=== PATIENT | female | born 1960 | race Caucasian/White ===

== ENCOUNTER 2017-06-14 14:29 | Inpatient (IN) | payer OTHER ==
[~2017-06-14] VITALS: Ht 157.5 cm; Wt 61.5 kg
--- NOTE | ~2017-06-14 | H ---
[facility] [place] [address] HISTORY AND PHYSICAL Name: SHUBHAM MCARTHUR Room #: 206-P ADM IN M.R.#: [id number] Admission: 06/14/17 Attend Phys: Pino Hsu MD Discharge: Date of : 64 Report #: [id number] THIS REPORT FOR: //name// CC: Felipe Moy DO [facility] physician/PCP Pino Hsu DATE OF SERVICE: 06/14/2017 History was primarily obtained from talking to the ER physician. No family available at the bedside. The patient has altered mental status and is awake, seems to be tracking me, but is nonverbal and does not follow any commands. HISTORY OF PRESENT ILLNESS: The patient is a 56-year-old female resident at [facility], has history of dementia, schizoaffective disorder and bipolar disorder who was brought into the Emergency Room because of increasing weakness. History is limited because the patient is being nonverbal, which is pretty much her baseline according to the documentation. They noted increasing weakness as she was not able to walk around. was also noted. The patient was hypotensive and tachycardic. On arrival to the Emergency Room, her initial blood pressure is 115/83, heart rate is 120 per minute. Workup in the Emergency Room included a CAT scan of the brain, which showed no acute abnormality. She did have electrolyte abnormality with an elevated sodium at 163 and also acute renal failure with a creatinine of 2.1. She was also noticed to have leukocytosis and UTI. PAST MEDICAL HISTORY: Significant for schizoaffective disorder, dementia and bipolar disorder. The patient is nonverbal at baseline. SOCIAL HISTORY: Unknown. FAMILY HISTORY: Unknown. REVIEW OF SYSTEMS: Unable to obtain from the patient. ALLERGIES: SHE IS ALLERGIC TO TETRACYCLINE, PENICILLIN, MORPHINE, BACTRIM. Please look at the nursing documentation for the reaction. HOME MEDICATIONS: Include Benadryl, trazodone 50 mg at bedtime, Tylenol, atorvastatin. The patient is also on Flonase, levothyroxine, loratadine, BuSpar, Haldol 1 mg p.o. b.i.d., Zyprexa as needed and zinc oxide. REVIEW OF SYSTEMS: Unable to obtain. PHYSICAL EXAMINATION: VITAL SIGNS: Reviewed. Blood pressure is 115/83, heart rate of 110 per minute, [facility] [address] [place] [address] HISTORY AND PHYSICAL Name: SHUBHAM MCARTHUR Room #: [facility] IN M.R.#: [id number] Admission: 06/14/17 Attend Phys: Pino Hsu MD Discharge: Date of : 64 Report #: [id number] afebrile. GENERAL: The patient is awake. She seems to be tracking me, but she is nonverbal. She does not follow any commands, seems to be keeping all her extremities pretty rigid. EYES: Pupils equal, reactive to light. THROAT: Difficult to appreciate because she does not want to open her mouth, but is kind of dry. NECK: Supple. No JVD, no bruit, no lymphadenopathy. CARDIOVASCULAR SYSTEM: S1, S2. No S3. CHEST: Bilateral air entry present. Clear on auscultation. ABDOMEN: Soft, bowel sounds present, no mass, no organomegaly, no tenderness. PERIPHERY: No pedal edema. Dorsalis pedis 1+. NEUROLOGICAL: The patient is nonverbal, does not follow any commands. No facial asymmetry noted. She seems to be moving her upper extremity. I did not see her moving her lower extremity, but she has kept all her extremities very rigid. LABORATORY DATA: Reviewed. White count was 19,000. ABG showed a pH of 7.394, pCO2 of 39, pO2 of 69. UA revealed 2+ bilirubin, 3+ blood, positive trace ketones, 2+ leukocyte esterase, more than 25 wbc's. Hemoglobin is 15.9, platelets 261. Sodium is 163, chloride is 125, BUN and creatinine are 84 and 2.1, AST and ALT are within normal limit. Troponin 0.05. CT of the brain showed no acute intracranial process. Chest x-ray showed no acute cardiopulmonary process. EKG showed atrial paced complexes. ASSESSMENT AND PLAN: 1. Altered mental status, likely, multifactorial secondary to her baseline dementia/schizoaffective disorder and also secondary to medications on top of the acute renal failure and hypernatremia. A CT scan of the brain was done. The patient will be monitored closely. We will consider further workup if her mental status does not improve. It appears that the nonverbal state is pretty much her baseline. 2. Hypernatremia. The patient will be started on half normal saline. We will recheck her basic metabolic panel at midnight. We will consult Renal. 3. Acute renal failure, likely prerenal secondary to poor p.o. intake/urinary tract infection. The patient will be hydrated with IV fluid. We will repeat labs in the morning. We will get an ultrasound of the kidneys. 4. Leukocytosis secondary to urinary tract infection. 5. Urinary tract infection. The patient has received a dose of levofloxacin in the ER. Levofloxacin will be continued. We will have pharmacy dose of levofloxacin. We will follow urine cultures and adjust antibiotic as needed. 6. Deep venous thrombosis prophylaxis. The patient will be on SCDs on the leg for deep venous thrombosis prophylaxis. We will also check on a CPK level. [facility] [address] [place] [address] HISTORY AND PHYSICAL Name: SHUBHAM MCARTHUR Room #: 206-P ADM IN M.R.#: [id number] Admission: 06/14/17 Attend Phys: Pino Hsu MD Discharge: Date of : 64 Report #: [id number] will hold off on all her p.o. medications at present. 7. History of hypothyroidism. We will check a TSH level. <ELECTRONICALLY SIGNED> By: Pino Hsu MD 06/15/17 0805 1613 1838 Pino Hsu MD /nt
--- NOTE | ~2017-06-14 | HC ---
[facility] [place] [address] CONSULTATION Name: SHUBHAM MCARTHUR Room #: 206-P ADM IN M.R.#: [id number] Admission: 06/14/17 Attend Phys: Pino Hsu MD Discharge: Date of : 64 Report #: [id number] THIS REPORT FOR: //name// CC: DR NEWSOME [facility] physician/PCP Pnio Hsu REQUESTING PHYSICIAN: Dr. Newsome. HISTORY OF PRESENT ILLNESS: The patient is a 56-year-old female who presented to [facility] on 06/14/2017. At this time, she was found to have weakness. She was transferred from [facility]. She was found to have sodium of 163 and also acute renal failure with creatinine 2.1. UTI was also diagnosed. White blood cells were found to be 19,000, and she has had continued leukocytosis. Unfortunately, she has been unable to communicate for quite some time now. She recently just received a PEG tube today and started tube feedings today. Unfortunately, I was not present for a possible aspiration episode on this initial feed. The patient had been recommended to have n.p.o. status and PEG tube placement due to speech evaluation, which showed a significant dysphagia with all consistencies. PAST MEDICAL HISTORY: Dementia, frontotemporal type. Schizoaffective disorder and bipolar disorder. She is chronically nonverbal. Hypothyroidism. MEDICATIONS: Benadryl p.r.n., trazodone 50 mg at bedtime p.r.n., Lipitor, levothyroxine. Haldol 1 mg b.i.d., Zyprexa p.r.n. SOCIAL HISTORY: No tobacco, alcohol or illicit drug use that we know of in the past. She has a daughter by the name of Jacquelin Salinas, who is apparently DPOA, attempted to contact today. ALLERGIES: SULFA IN THE FORM OF BACTRIM, TRIMETHOPRIM ALSO IN THAT FORM. FAMILY HISTORY: Unknown. PAST SURGICAL HISTORY: PEG tube placement, otherwise unknown. REVIEW OF SYSTEMS: Unable to obtain review of systems from chronically nonverbal patient. PHYSICAL EXAMINATION: VITAL SIGNS: Include temperature 36.5, pulse 86, respirations 17, blood pressure 109/72, 98% on room air. GENERAL: The patient appears to have poor attention. She will awaken to touch stimuli. Unable to grasp whether she has a good attention level or not, would not respond to any verbal questioning. The patient does not track consistently. [facility] [address] [place] [address] CONSULTATION Name: SHUBHAM MCARTHUR Room #: 206-P [facility]#: [id number] Admission: 06/14/17 Attend Phys: Pino Hsu MD Discharge: Date of : 64 Report #: [id number] HEENT: Extraocular muscles do appear to be intact bilaterally. No scleral icterus or injection. CARDIOVASCULAR: Regular rate and rhythm without murmur. LUNGS: Clear to auscultation bilaterally. No wheezes, rales or rhonchi. ABDOMEN: This appears to be soft, nontender to palpation. PEG tube site appears to be appropriate. EXTREMITIES: Does have apparent cachexia and overall difficult to determine strength of her musculature. LABORATORY DATA: These include a CBC, which was within normal limits today. ASSESSMENT AND PLAN: 1. Dysphagia, possible aspiration episode today. Does have a new PEG tube, may require further adjustments in positioning prior to feeds and also to thoroughly watch the patient's residuals, which was discussed with staff today. I did attempt to contact [facility] to discuss further recommendations regarding her future care considering her comorbidities, unable to reach at this time, have left a message, will attempt to recontact in the morning. 2. Dementia, frontotemporal type, appears to be severe. The patient is chronically nonverbal at this time. Again, this portends a poor prognosis, especially in light of her dysphagia. Studies have shown that even PEG tube placement does not necessarily lengthen the life expectancy in these types of patients. 3. Schizoaffective disorder and bipolar disorder, may be affecting her overall cognitive status, difficult to say at this time. 4. Urinary tract infection. This may have induced delirium, although it is difficult to establish whether this is delirium or underlying dementia. We will attempt to discuss further with family in the morning. Thank you very much for the consultation. We will continue to follow the patient. By: 1109 Giovanni Jain DO /nt
--- NOTE | ~2017-06-14 | HC ---
[facility] [place] [address] CONSULTATION Name: SHUBHAM MCARTHUR Room #: 206- ADM IN M.R.#: [id number] Admission: 06/14/17 Attend Phys: Pino Hsu MD Discharge: Date of : 64 Report #: [id number] THIS REPORT FOR: //name// CC: [facility] physician/PCP Pino Hsu DATE OF SERVICE: 06/14/2017 DATE OF SERVICE: 06/14/2017 REASON FOR CONSULTATION: Hypernatremia. CHIEF COMPLAINT: Mental status issues and decreased p.o. intake. HISTORY OF PRESENT ILLNESS: This is a 56-year-old who resides in a nursing facility. She has a history of frontotemporal dementia, schizoaffective disorder, was brought to the emergency room with weakness, inability to take p.o. Family is at bedside. She was found to be hypertensive and tachycardic. Nursing facility reported that the patient has a decreased p.o. intake and she was not eating and drinking. She had a creatinine of 2.1 on presentation with an elevated sodium of 163 mandating the consultations. PAST MEDICAL HISTORY: 1. Frontotemporal dementia. 2. Schizoaffective disorder. 3. Bipolar disorder. MEDICATIONS: 1. Simvastatin. 2. Trazodone. PAST SURGICAL HISTORY: None. FAMILY HISTORY: Family member reported hypertension. REVIEW OF SYSTEMS: Family members reported the following: CARDIOVASCULAR: No chest pain or palpitation. PULMONARY: No cough or hemoptysis. GASTROINTESTINAL: Decreased p.o. intake with loss of appetite. GENITOURINARY: No frequency, no urgency. SOCIAL HISTORY: She resides in a nursing facility. No drug or alcohol abuse. PHYSICAL EXAMINATION: GENERAL: She is with withdrawn. VITAL SIGNS: Temperature 36.7, blood pressure 119/82. [facility] [address] [place] [address] CONSULTATION Name: SHUBHAM MCARTHUR Room #: 206-P [facility] IN M.R.#: [id number] Admission: 06/14/17 Attend Phys: Pino Hsu MD Discharge: Date of : 64 Report #: [id number] HEAD AND NECK: Dry mucous membrane. CHEST: No crackles. CARDIOVASCULAR: No rub. ABDOMEN: Soft, nontender. LOWER EXTREMITIES: No edema. LABORATORY VALUES: Reviewed. Most recent sodium is 161, creatinine is down to 1.4. ASSESSMENT, IMPRESSION AND PLAN: 1. Hypernatremia due to poor p.o. intake. 2. Discontinue half-normal saline. 3. Switched to D5W. 4. Serial sodium measurement. 5. Her kidney function seems to be improving and she is back to her baseline. 6. We will continue to follow along. Pending the investigations for her hypernatremia I doubt that there is any element of diabetes insipidus; however, we will keep that in our mind. <ELECTRONICALLY SIGNED> By: Chip Castillo MD 06/18/17 0834 0656 0816 Chip Castillo MD /rocio
--- NOTE | ~2017-06-14 | EKG ---
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: Claudia SALAZAR : 1960 Requested By: Gt Tovar Order Number: [id number] MD: Leobardo Burt Measurements Intervals [place] Rate: 121 P: 40 SC: 122 QRS: -11 QRSD: 86 T: 88 QT: 327 QTc: 464 Interpretive Statements Atrial-paced complexes Abnormal R-wave progression, early transition Borderline repolarization abnormality Artifact in lead(s) I,II,III,aVR,aVL,aVF No previous ECG available for comparison Electronically Signed On 06-14-2017 16:33:17 CDT by Leobardo Burt [email or web address] <ELECTRONICALLY SIGNED> By: Leobardo Burt MD 06/14/17 1633 1448 1448 Leobardo Burt MD /EPI
[2017-06-14 14:30] VITALS: BP 115/83
[2017-06-14 14:49] LABS: HEMATOCRIT 49.7 % (37.0-47.0); HEMOGLOBIN 15.9 gm/dL (12.0-15.0); MCH 29.8 pg (26.0-34.0); MCV 93.1 fL (80.0-100.0); RBC 5.34 mil/uL (4.20-5.00); RDW 14.6 % (10.5-14.5)
[2017-06-14 14:53] LABS: URINE BILIRUBIN 2+ (Negative); URINE BLOOD 3+ (Negative); URINE COLOR YELLOW; URINE GLUCOSE-RANDOM* NEGATIVE (Negative); URINE KETONES TRACE (Negative); URINE PROTEIN (DIPSTICK) 2+ (Negative); URINE SPECIFIC GRAVITY 1.025 (1.003-1.035)
[2017-06-14 14:54] LABS: CALCIUM 9.2 mg/dL (8.5-10.1); CREATININE 2.1 mg/dL (0.6-1.0); POTASSIUM 3.5 mmol/L (3.5-5.1)
[2017-06-14 14:56] LABS: URINE LEUKOCYTES-REFLEX 2+ (Negative)
[2017-06-14] MEDS ORDERED: LIPITOR 20 MG T20 M1 PO (14:57)
[2017-06-14] MEDS ORDERED: TRAZODONE HCL50 MG PO (14:58)
[2017-06-14] MEDS ORDERED: BENADRYL25 MG PO (14:58)
[2017-06-14 15:00] LABS: ICTOTEST (BILI CONFIRMATORY) Negative (Negative)
[2017-06-14 15:01] LABS: URINE WBC-REFLEX >25 Many /HPF (0-5)
[2017-06-14 15:02] LABS: CASTS None Seen /LPF (None Seen); CRYSTALS None Seen /LPF (None Seen); SQUAMOUS 0-3 Few /LPF (0-3); YEAST-REFLEX Present (None Seen)
[2017-06-14 15:02] LABS: ABG SAMPLE TYPE ARTERIAL; BE(vivo) -0.9 mmol/L (-2 to +3); HCO3 23.8 mmol/L (22.0-26.0); LACTATE 2.02 mmol/L (0.5-2.0); O2(CT) 22.2 mL/dL (15.0-23.0); PCO2 39.8 mmHg (35.0-45.0); PO2 69.5 mmHg (80.0-100.0); STICK SITE R.BRACHIAL; pH 7.394 (7.360-7.450); sO2 93.9 % (92.0-98.0)
[2017-06-14 15:06] LABS: DIRECT BILIRUBIN 0.2 mg/dL (<0.1-0.3); TOTAL BILIRUBIN 0.8 mg/dL (<0.1-1.0); TOTAL PROTEIN 7.7 g/dL (6.4-8.2); TROPONIN-I 0.05 ng/mL (<0.06)
[2017-06-14 17:06] VITALS: BP 115/83
[2017-06-14 17:20] VITALS: BP 110/75
[2017-06-14 21:21] VITALS: BP 105/63
[2017-06-15] LABS: CALCIUM 9.1 mg/dL (8.5-10.1); CREATININE 1.4 mg/dL (0.6-1.0); POTASSIUM 3.5 mmol/L (3.5-5.1)
[2017-06-15 01:03] VITALS: BP 104/69
[2017-06-15 04:27] VITALS: BP 119/82
[2017-06-15 08:00] VITALS: BP 96/62
[2017-06-15 08:20] LABS: HEMATOCRIT 42.2 % (37.0-47.0); MCH 29.5 pg (26.0-34.0); MCHC 31.9 g/dL (28.0-37.0); MCV 92.7 fL (80.0-100.0); RBC 4.55 mil/uL (4.20-5.00); RDW 14.5 % (10.5-14.5); WBC 15.1 thou/uL (4.0-11.0)
[2017-06-15 08:49] LABS: HEMOGLOBIN 13.4 gm/dL (12.0-15.0)
[2017-06-15 09:59] LABS: ALBUMIN 3.4 g/dL (3.4-5.0); CREATININE 1.1 mg/dL (0.6-1.0); MAGNESIUM 2.1 mg/dL (1.8-2.4); POTASSIUM 3.8 mmol/L (3.5-5.1); TOTAL BILIRUBIN 0.9 mg/dL (<0.1-1.0); TOTAL PROTEIN 6.5 g/dL (6.4-8.2)
[2017-06-15 11:44] VITALS: BP 113/75
[2017-06-15 15:35] LABS: ALBUMIN 3.3 g/dL (3.4-5.0); CREATININE 0.9 mg/dL (0.6-1.0); PHOSPHORUS 2.5 mg/dL (2.5-4.9); POTASSIUM 3.6 mmol/L (3.5-5.1)
[2017-06-15 15:40] VITALS: BP 131/86
[2017-06-15 19:47] VITALS: BP 85/60
[2017-06-16 04:21] VITALS: BP 94/61
[2017-06-16 06:27] LABS: ALBUMIN 3.3 g/dL (3.4-5.0); CALCIUM 8.9 mg/dL (8.5-10.1); CREATININE 0.8 mg/dL (0.6-1.0); MAGNESIUM 1.9 mg/dL (1.8-2.4); PHOSPHORUS 2.8 mg/dL (2.5-4.9); POTASSIUM 3.2 mmol/L (3.5-5.1)
[2017-06-16 07:45] VITALS: BP 88/57
[2017-06-16 11:21] VITALS: BP 99/64
[2017-06-16 17:15] VITALS: BP 96/63
[2017-06-16 19:46] VITALS: BP 122/72
[2017-06-17] VITALS (7 sets, daily range): BP systolic 96–134; BP diastolic 61–89
[2017-06-17 03:46] LABS: ALBUMIN 3.1 g/dL (3.4-5.0); CALCIUM 8.8 mg/dL (8.5-10.1); CREATININE 0.8 mg/dL (0.6-1.0); PHOSPHORUS 1.8 mg/dL (2.5-4.9); POTASSIUM 3.4 mmol/L (3.5-5.1)
[2017-06-17 04:18] LABS: TSH 4.278 uIU/mL (0.358-3.740)
[2017-06-18 03:27] LABS: ABSOLUTE NEUTROPHILS 5.3 thou/uL (1.4-8.2); BASOPHILS 0.5 % (0.0-2.0); EOSINOPHILS 2.1 % (0.0-3.0); HEMATOCRIT 38.4 % (37.0-47.0); HEMOGLOBIN 12.5 gm/dL (12.0-15.0); LYMPHOCYTES 33.7 % (24.0-44.0); MANUAL DIFF NO; MCH 29.8 pg (26.0-34.0); MCHC 32.7 g/dL (28.0-37.0); MCV 91.2 fL (80.0-100.0); MONOCYTES 9.4 % (1.0-8.0); PLATELET COUNT 156 thou/uL (150-400); POLYS 54.3 % (36.0-66.0); RBC 4.21 mil/uL (4.20-5.00); RDW 13.7 % (10.5-14.5); WBC 9.8 thou/uL (4.0-11.0)
[2017-06-18 03:32] LABS: CALCIUM 8.5 mg/dL (8.5-10.1); CREATININE 0.7 mg/dL (0.6-1.0); MAGNESIUM 1.9 mg/dL (1.8-2.4)
[2017-06-18 04:30] VITALS: BP 104/67
[2017-06-18 07:15] VITALS: BP 93/69
[2017-06-18 11:16] VITALS: BP 109/72
[2017-06-18 15:14] VITALS: BP 89/57
[2017-06-18 20:01] VITALS: BP 101/65
[2017-06-19 00:02] VITALS: BP 112/64
[2017-06-19 04:03] LABS: CALCIUM 8.8 mg/dL (8.5-10.1); CREATININE 0.8 mg/dL (0.6-1.0); PHOSPHORUS 1.9 mg/dL (2.5-4.9); POTASSIUM 3.2 mmol/L (3.5-5.1)
[2017-06-19 04:47] VITALS: BP 108/69
[2017-06-19 07:50] VITALS: BP 105/67
[2017-06-19] MEDS ORDERED: POTASSIUM CHLO20 MEQ PER TUBE (09:15)
[2017-06-19 11:45] VITALS: BP 126/85
== END 2017-06-19 15:22 | DRG 871 ==
LOC: ER 14:29 → EROBS 16:15 → 2N 16:15
PROVIDERS: Emergency Medicine; Hospitalist; Internal Medicine; Internal Medicine Geriatric Medicine; Nurse Practitioner Acute Care
PROC: 0DH63UZ Insertion of Feeding Device into Stomach, Percutaneous Approach (ICD-10-PCS; principal; 2017-06-17)
DX: A41.9 Sepsis, unspecified organism (principal); G93.40 Encephalopathy, unspecified; E43 Unspecified severe protein-calorie malnutrition; N17.9 Acute kidney failure, unspecified; N39.0 Urinary tract infection, site not specified; E87.0 Hyperosmolality and hypernatremia; E03.9 Hypothyroidism, unspecified; E86.0 Dehydration; E83.42 Hypomagnesemia; E87.6 Hypokalemia; F02.80 Dementia in other diseases classified elsewhere, unspecified severity, without behavioral disturbance, psychotic disturbance, mood disturbance, and anxiety; G31.09 Other frontotemporal neurocognitive disorder; R13.10 Dysphagia, unspecified; F25.9 Schizoaffective disorder, unspecified; F31.9 Bipolar disorder, unspecified; Z82.49 Family history of ischemic heart disease and other diseases of the circulatory system; Z88.2 Allergy status to sulfonamides; Z88.8 Allergy status to other drugs, medicaments and biological substances; Z90.3 Acquired absence of stomach [part of]; Z68.24 Body mass index [BMI] 24.0-24.9, adult; Z79.899 Other long term (current) drug therapy; Z23 Encounter for immunization; R65.20 Severe sepsis without septic shock
CPT/HCPCS: 10081

== ENCOUNTER 2018-05-15 11:32 | Inpatient (IN) | payer OTHER ==
[~2018-05-15] VITALS: Ht 160 cm; Wt 59.2 kg
--- NOTE | ~2018-05-15 | O ---
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 PROCEDURE: Right above knee amputation. SURGEON: Anil Cerda MD. ATV MECHANIC: Misty Aguirre PA-C. INDICATION FOR ATV MECHANIC: Throughout the case, extensive retraction of the leg was required. This was afforded to me by my doctor assistant. ANESTHESIA: General. ESTIMATED BLOOD LOSS: 25 mL. TOURNIQUET TIME: 24 minutes. COMPLICATIONS: None. SPECIMENS: Right lower extremity was sent to pathology. CONDITION UPON LEAVING THE OPERATING ROOM: Stable. INDICATIONS FOR PROCEDURE: The patient is a 57-year-old female who has had progressive dementia and catatonia. She has significant contractures of her all 4 limbs. She has developed calcaneal osteomyelitis and the right lower extremity is nonambulatory. After discussion with her as well as her daughter who is her DPOA and Wound Care, the decision was made for right above knee amputation. DESCRIPTION OF PROCEDURE: Risks, benefits, alternatives, complications were discussed in detail with the patient including but not limited to risk of anesthesia, risk of damage to nerves, arteries, blood vessels, risk for infection, bleeding, continued leg pain, need for higher level amputation. [facility] [address] [place] [address] OPERATIVE REPORT Name: SHUBHAM MCARTHUR Room #: 431-P ADM IN M.R.#: [id number] Admission: 05/15/18 Attend Phys: Honorio Tee MD Discharge: Date of : 64 Report #: [id number] Informed consent was obtained from the patient's daughter who is her DPOA. Right leg was appropriately marked in the preoperative holding area. She was brought to the operating room and placed in supine position on the operating room table. General anesthesia was induced without complication. Right lower extremity was then prepped and draped in normal sterile fashion. Timeout was performed properly identifying the patient and procedure as well as the instrumentation. All in the operating room were in agreement. A sterile tourniquet was used on the right thigh. This was inflated. A fishmouth type incision was then made on the distal third of the thigh with a 10 blade through the skin. Dissection was taken down through the musculature with Bovie cautery and bleeding vessels encountered were tied off with 0 silk. Femur was then cut with oscillating saw and amputation was completed with Bovie cautery. The sciatic nerve was identified, pulled taut and cut sharply with a 10 blade to decrease neuroma formation. Popliteal artery was dissected out and tied off with 0 silk. After this, tourniquet was deflated. Hemostasis was obtained with Bovie cautery. The posterior musculature were debulked with Bovie cautery and the anterior fascia and posterior fascia were then closed with 0 Vicryl suture. A Hemovac drain was placed deep to the fascial closure. The skin was closed with 2-0 Vicryl and skin dominic. Soft dressing of Adaptic, 4 x 4, Webril, Hernandez wrap were applied. The patient tolerated this procedure well and went to recovery room under care of anesthesia postoperatively. <ELECTRONICALLY SIGNED> By: Anil Cerda MD 05/26/18 0851 1248 1312 Anil Cerda MD /nt
--- NOTE | ~2018-05-15 | 2DMMODE ---
[facility] [address] [place] [address] 2 D/M-MODE ECHOCARDIOGRAM Name: SHUBHAM MCARTHUR Room #: 431-P ADM IN M.R.#: [id number] Admission: 05/15/18 Attend Phys: Honorio Tee MD Discharge: Date of : 64 Date of Service: 05/18/18 1338 Report #: [id number] THIS REPORT FOR: //name// APPROVED REPORT Study performed: 05/18/2018 11:23:43 EXAM: Comprehensive 2D, Doppler, and color-flow Echocardiogram Patient Location: Bedside Room #: 431 Status: routine BSA: 1.61 HR: 116 bpm BP: 129/74 mmHg Rhythm: NSR Other Information Study Quality: Poor Indications Sepsis Tachycardia 2D Dimensions RVDd: 18.54 mm IVSd: 8.95 (7-11mm) LVOT Diam: 18.54 (18-24mm) LVDd: 31.79 mm PWd: 8.32 (7-11mm) Ascending Ao: 27.24 (22-36mm) LVDs: 23.53 (25-40mm) Aortic Root: 33.28 mm Volumes Left Atrial Volume (Systole) Single Plane 4CH: 16.66 mL Single Plane 2CH: 19.51 mL LA ESV Index: 12.09 mL/m2 Aortic Valve AoV Peak Juan.: 1.45 m/s AO Peak Gr.: 8.41 mmHg LVOT Max P.86 mmHg LVOT Max V: 1.31 m/s ULICES Vmax: 2.44 cm2 Mitral Valve E/A Ratio: 0.7 MV Decel. Time: 99.52 ms [facility] [address] [place] [address] 2 D/M-MODE ECHOCARDIOGRAM Name: SHUBHAM MCARTHUR Room #: 431-P [facility]#: [id number] Admission: 05/15/18 Attend Phys: Honorio Tee MD Discharge: Date of : 64 Date of Service: 05/18/18 1338 Report #: [id number] MV E Max Juan.: 0.76 m/s MV A Juan.: 1.05 m/s MV PHT: 28.86 ms IVRT: 113.03 ms Pulmonary Valve PV Peak Juan.: 1.05 m/s PV Peak Gr.: 4.42 mmHg Tricuspid Valve RAP Estimate: 5.00 mmHg Left Ventricle Left ventricle is grossly normal size. There is normal left ventricular wall thickness. The left ventricular systolic function is normal. The left ventricular ejection fraction is within the normal range. LVEF is 60%. Mild diastolic dysfunction is present (impaired relaxation pattern). Right Ventricle The right ventricle is normal size. The right ventricular systolic function is normal. Atria The left atrium size is normal. The right atrium size is normal. Aortic Valve The aortic valve is not well visualized. Aortic valve appears trileaflet. No aortic regurgitation is present. There is no aortic valvular stenosis. Mitral Valve The mitral valve is normal in structure. There is no mitral valve regurgitation noted. No evidence of mitral valve stenosis. Tricuspid Valve The tricuspid valve is normal in structure. Trace tricuspid regurgitation. Unable to assess PAP pressure. Pulmonic Valve Pulmonic valve is not well visualized. Great Vessels The aortic root is normal in size. The ascending aorta is normal in size. IVC is normal in size and collapses >50% with inspiration. [facility] [address] [place] [address] 2 D/M-MODE ECHOCARDIOGRAM Name: SHUBHAM MCARTHUR Room #: 431-P ADM IN M.R.#: [id number] Admission: 05/15/18 Attend Phys: Honorio Tee MD Discharge: Date of : 64 Date of Service: 05/18/181337 Report #: [id number] <Conclusion> Left ventricle is grossly normal size. There is normal left ventricular wall thickness. The left ventricular systolic function is normal. Mild diastolic dysfunction is present (impaired relaxation pattern). The right ventricle is normal size. The left atrium size is normal. There is no aortic valvular stenosis. There is no mitral valve regurgitation noted. Trace tricuspid regurgitation. <ELECTRONICALLY SIGNED> By: Rai Robert MD 05/18/188 37 37 Rai Robert MD /MAIA
--- NOTE | ~2018-05-15 | HC ---
[facility] [place] [address] CONSULTATION Name: SHUBHAM MCARTHUR Room #: 431-P ADM IN M.R.#: [id number] Admission: 05/15/18 Attend Phys: Honorio Tee MD Discharge: Date of : 64 Report #: [id number] THIS REPORT FOR: //name// CC: Steve Tee DATE OF SERVICE: 05/16/2018 INFECTIOUS DISEASE CONSULTATION ATTENDING PHYSICIAN: Dr. Tee. REASON FOR EVALUATION: Right heel pressure-related ulcer, complicated by inflammation, probably infection, also has likely urinary tract infection. HISTORY OF PRESENT ILLNESS: Chart reviewed, the patient examined. This is a 57-year-old woman with profound history given her age. She has a psychiatric overlay with schizoaffective disorders, may be some schizophrenia and progressive dementia, who resides in a mcc. She is quite contracted. She was actually admitted through the Emergency Room after her feeding tube came out. She was noted to have a contraction about the hip flexor, knee flexor and leading to a chronic ulcer involving her right calcaneal site. She was found to have sed rate of 62. Plain x-ray of the foot showed no evidence of chronic osteomyelitis. Additional concerning evidence was urinalysis showed moderate pyuria, suspected urinary tract infection. Her lactic acid is 1.6. It is notable she is nonverbal. She was empirically started on therapy with vancomycin. ALLERGIES: LISTED TO PENICILLINS, TETRACYCLINE, SULFA AND ERYTHROMYCINS. MEDICATIONS: Currently include multivitamin, ascorbic acid, baclofen, vancomycin, trazodone, atorvastatin and did get a dose of ceftriaxone as well. PAST MEDICAL HISTORY: As noted above, has hyperlipidemia. SOCIAL HISTORY: Nonsmoker, no ethanol, no illicit drug use. FAMILY HISTORY: Noncontributory. REVIEW OF SYSTEMS: Not obtainable. PHYSICAL EXAMINATION: GENERAL: She is positioned in bed. She is supine. She has regularly pulling her upper limbs, I suspect due to contractures, seems marked contracture of the right lower limb as well. Eyes are open. There is really no evidence she is tracking. There is no verbal response. She is mildly diaphoretic. She appears [facility] [address] [place] [address] CONSULTATION Name: SHUBHAM MCARTHUR Room #: 431-P [facility] IN M.R.#: [id number] Admission: 05/15/18 Attend Phys: Honorio Tee MD Discharge: Date of : 64 Report #: [id number] reasonably well nourished. VITAL SIGNS: Temperature 98.7, pulse 117, respirations 18 and blood pressure 145/79. SKIN: Warm. There are no rashes. HEENT: There is rigidity back in the neck. LUNGS: Diminished, otherwise clear. HEART: Regular. I do not appreciate a murmur. ABDOMEN: Soft. There are no peritoneal signs. EXTREMITIES: She has got a dressing over her right foot. GENITOURINARY: Deferred. RECTAL: Deferred. LABORATORY DATA: As described above, sed rate is 62. CRP of 29.5. Lactic acid 1.6. Troponin less than 0.06. Urinalysis 6-15 white cells, 1-9 bacteria. Electrolytes: Sodium 136, potassium 4.1, chloride 101, bicarbonate is 31, anion gap of 4 and BUN and creatinine 17 and 0.7. CBC: White count 16.0, H and H 13.4 and 40.3 and platelets of 440,000. Foot x-ray, no evidence of bony changes that would suggest chronic osteomyelitis. Chest x-ray, no acute process. ASSESSMENT AND PLAN: Chronic wound involving the right calcaneus. We will continue empiric antimicrobial therapy. I noted wound care has been consulted and they may well know her from previous. In the event of dressing changes, we will try to get culture samples. Initially, there may well be evidence of bacteriuria. Whether this is true, UTI is not clear to me and there is some moderate pyuria. We have given a single dose of Rocephin and we will continue that briefly, pending results of the blood and urine cultures. <ELECTRONICALLY SIGNED> By: Alexy Valentin MD 05/17/18 0357 0659 1322 Alexy Valentin MD /nt
--- NOTE | ~2018-05-15 | HC ---
[facility] [place] [address] CONSULTATION Name: SHUBHAM MCARTHUR Room #: 431-P ADM IN M.R.#: [id number] Admission: 05/15/18 Attend Phys: Honorio Tee MD Discharge: Date of : 64 Report #: [id number] THIS REPORT FOR: //name// CC: Steve Tee CHIEF COMPLAINT: Osteomyelitis, right foot. This 57-year-old female with chronic schizophrenia is essentially unresponsive and is a chronically contracted position with severe hip and knee contractures. She is here for a PEG tube placement, but was also noted to have a chronic infection involving the right foot with what appears to be chronic osteomyelitis involving the heel. She was seen by Dr. Bosch who felt it was probably not practical to manage this wound and would not expect we would ever achieve adequate healing. Therefore, he suggested going ahead with amputation, given her marked flexion contracture above-knee amputation might be considered. At the time of my evaluation, the patient is unresponsive and in a very chronically flexed position. The right heel demonstrates a wound, which is difficult to inspect, but apparently is consistent with a deep soft tissue infection and chronic osteomyelitis. She has about 50 degrees of hip flexion and 90 degrees of knee flexion bilaterally. She seems to have satisfactory soft tissues, both below the knee and above the knee. I have had a lengthy discussion with her family who have durable power of united [place] attorney. I have explained that we can simply continue her chronic wound care, but I doubt they would ever achieve complete healing. As an alternative, I think amputation would be an acceptable option. I would agree that she would have a high likelihood of wound breakdown with a below-knee amputation given her flexion contracture; however, we may be able to do enough soft tissue and tendon releases to allow better position of the knee and below-knee amputation level might be acceptable. Alternatively, above-knee amputation would be the other option. At this point, I am uncertain of when we might be able to accomplish this procedure. I personally am out of town for the next 7 days. I will discuss the issue with my partners and see whether there is an option for elective above-knee amputation sometime in the interim. The patient is unable to discuss the issue, but family seems to understand and agree with proceeding whenever scheduling will allow. <ELECTRONICALLY SIGNED> By: Segundo Aggarwal MD 05/26/18 1413 1721 0258 Segundo Aggarwal MD /nt
--- NOTE | ~2018-05-15 | EKG ---
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
--- NOTE | ~2018-05-15 | PATH ---
[facility] [address] [place] [address] PATHOLOGY RPT PROCEDURE Name: BLUESHUBHAM Room #: 431-P DIS IN M.R.#: [id number] Admission: 05/15/18 Date of : 64 Discharge: 05/26/18 Report #: [id number] Path Case #: [id number] [facility] Accession Number: [id number] . 01 Material submitted: . RIGHT ABOVE KNEE AMPUTATION . 01 Clinical history: . Osteomyelitis. . 02 Diagnosis: Leg 'right above knee amputation": - Extensive ulceration of the medial aspect of the heel measuring 2.7 cm in greatest dimension with extensive necrosis and acute inflammation extending into the underlying bone with acute and chronic osteomyelitis. - Skin, soft tissue and the bone margins are not involved. - Vessels reveal calcific narrowing. . (SHA:at;05/26/2018) QTA/05/26/2018 . 02 Electronically signed: . Daniel Saunders MD, Pathologist NPI- [id number] . 01 Gross description: . Received fresh labeled "Shubham Mcarthur, right above knee amputation" is an above knee amputation specimen which measures 11.8 cm from proximal margin knee, 42.5 x 9.8 x 7.5 cm from knee to heel, and the foot measures 24.5 x 7.4 x 6.5 cm. Present on the foot are 5 intact toes with nails, which are yellow-phillips and thickened without ulcerations. The proximal soft tissue, skin, and bone resection margins are smooth and consistent with surgical margins. The vessel at the proximal margin and the dorsalis pedis artery are dissected and sectioned to reveal no stenosis or calcification. Present on the medial aspect of the heel is a phillips-pink ulcerated lesion measuring 2.7 x 2.1 x 0.6 cm, which is located 36.5 cm from the closest approach of the proximal bone margin, and 29.3 cm from the closest skin and soft tissue margin. Upon sectioning, the lesion possibly involves the underlying bone. Metal Molder sections of the specimen are submitted as follows: A1 closest skin and soft tissue margin A2 femur bone margin, decalcified A3 vessels at proximal margin A4 customer development representative lesion on heel A5 customer development representative bone underlying the lesion, decalcified ([facility]; 05/24/2018) [facility]/[address] [address] PATHOLOGY RPT PROCEDURE Name: SHUBHAM MCARTHUR Room #: 431-P DIS IN M.R.#: [id number] Admission: 05/15/18 Date of : 64 Discharge: 05/26/18 Report #: [id number] Path Case #: [id number] . 02 Pathologist provided ICD-10: M86.161, M86.661, L98.499 . 02 CPT . 694014, 863006 Specimen Comment: A courtesy copy of this report has been sent to Specimen Comment: [phone], . Specimen Comment: Report sent to ,DR DIOR / DR JAUREGUI Specimen Comment: A duplicate report has been generated due to demographic updates. Performed at: 01 [facility] [address], [place] [id number] MD Guille Mejia MD Phone: [phone] Performed at: [address] [facility] [address] [id number] MD Mabel Nazario MD Phone: [phone]
--- NOTE | ~2018-05-15 | HC ---
[facility] [place] [address] CONSULTATION Name: SHUBHAM MCARTHUR Room #: 431-P [facility] IN M.R.#: [id number] Admission: 05/15/18 Attend Phys: Honorio Tee MD Discharge: Date of : 64 Report #: [id number] THIS REPORT FOR: //name// CC: Steve Tee DATE OF SERVICE: 05/16/2018 WOUND CARE CONSULTATION REASON FOR CONSULTATION: Chronic right heel ulcer in a 57-year-old debilitated woman, severe schizoaffective disorder, contractures of lower extremities, admitted for dislodged gastrostomy tube and possible infection. HISTORY OF PRESENT ILLNESS: The patient is an unfortunate 57-year-old woman with dementia and severe schizoaffective disorder rendering her noncommunicative, debilitated with severe contractures. She resides in a half-way. She was brought to [facility] after the feeding tube came out. She was noted to have an ulcer of the right heel and was admitted. X-ray of the right heel has shown no evidence of osteomyelitis. She was begun on IV antibiotics. ALLERGIES: PENICILLIN, TETRACYCLINE, SULFA, ERYTHROMYCIN. MEDICATIONS: Include multivitamins, ascorbic acid, baclofen, trazodone, atorvastatin,. PAST MEDICAL HISTORY: Severe schizoaffective disorder, debility, contractures of extremities, hyperlipidemia. SOCIAL HISTORY: The patient lives in a half-way. PHYSICAL EXAMINATION: GENERAL: Shows a noncommunicative, middle-aged female who is alert. HEENT: Mucous membranes are moist. LUNGS: Respirations are unlabored. ABDOMEN: Soft. EXTREMITIES: Lower extremities are severely contractured. Examination of the right heel shows in the posterior right heel, a 2 x 1 cm deep pressure ulcer with palpable bone at the base. LABORATORY DATA: White blood count 16.0. IMPRESSION: 1. Severe schizoaffective disorder. 2. Severe debility with contractures. [facility] [address] [place] [address] CONSULTATION Name: SHUBHAM MCARTHUR Room #: 431-[facility]#: [id number] Admission: 05/15/18 Attend Phys: Honorio Tee MD Discharge: Date of : 64 Report #: [id number] 3. Protein calorie malnutrition. 4. Right heel stage 4 pressure ulcer, possible source of her infection. PLAN: The patient has been begun on IV antibiotics. She has been seen by infectious disease. We will order Aquacel Ag packing of the wound daily. We will consider bedside debridement of the wound or podiatry consultation. Podiatry to decide whether MRI will be indicated. We will order foam boots as well. <ELECTRONICALLY SIGNED> By: Sergio Toscano MD 05/17/18 1009 1514 2255 Sergio Toscano MD /nt
--- NOTE | ~2018-05-15 | EKG ---
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: JANETH : 1960 Requested By: Saurabh Berkowitz Order Number: [id number] MD: Jimmie Abrams Measurements Intervals [place] Rate: 117 P: 44 CT: 145 QRS: 3 QRSD: 71 T: 73 QT: 343 QTc: 479 Interpretive Statements Sinus tachycardia Abnormal R-wave progression, early transition Artifact in lead(s) I,II,III,aVR,aVL,aVF Compared to ECG 06/14/2017 14:48:49 No significant change was found Electronically Signed On 05-16-2018 10:08:13 CDT by Jimmie Abrams [email or web address] <ELECTRONICALLY SIGNED> By: Jimmie Abrams MD, FAC 05/16/18 1008 1228 1228 Jimmie Abrams MD, [facility] /EPI
--- NOTE | ~2018-05-15 | EKG ---
[address] [address] ELECTROCARDIOGRAM REPORT Name: SHUBHAM MCARTHUR Room #: 431-P ADM IN M.R.#: [id number] Admission: 05/15/18 Attend Phys: Honorio Tee MD Discharge: Date of : 64 Report #: [id number] THIS REPORT FOR: //name// [facility] Test Date: 2018-05-16 Test Time: 13:16:23 Pat Name: SHUBHAM MCARTHUR Department: Room: 431 P Gender: F Superintendent Storage Area: JUJU : 1960 Requested By: Honorio Tee Order Number: [id number] MD: Jimmie Abrams Measurements Intervals [place] Rate: 126 P: 89 [place]: 118 QRS: 4 QRSD: 98 T: 72 QT: 312 QTc: 452 Interpretive Statements Sinus tachycardia Borderline low voltage, extremity leads Early R-wave progression Artifact in lead(s) I,III,aVR,aVL Compared to ECG 05/15/2018 12:28:33 No significant change was found Electronically Signed On 05-17-2018 11:29:19 CDT by Jimmie Abrams [email or web address] <ELECTRONICALLY SIGNED> By: Jimmie Abrams MD, [facility] 05/17/18 1129 1316 1316 Jimmie Abrams MD, [facility] /EPI
[~2018-05-15 11:32] MED LIST: BENADRYL25 MG PO; LIPITOR 20 MG T20 M1 PO; POTASSIUM CHLO20 MEQ PER TUBE; TRAZODONE HCL50 MG PO
[2018-05-15 11:35] VITALS: BP 110/59
[2018-05-15 13:24] LABS: ABSOLUTE NEUTROPHILS 11.1 thou/uL (1.4-8.2); BASOPHILS 0.6 % (0.0-2.0); EOSINOPHILS 2.1 % (0.0-3.0); HEMATOCRIT 40.3 % (37.0-47.0); HEMOGLOBIN 13.4 gm/dL (12.0-15.0); LYMPHOCYTES 19.8 % (24.0-44.0); MCH 29.6 pg (26.0-34.0); MCHC 33.1 g/dL (28.0-37.0); MCV 89.2 fL (80.0-100.0); MONOCYTES 7.9 % (1.0-8.0); PLATELET COUNT 440 thou/uL (150-400); POLYS 69.6 % (36.0-66.0); RBC 4.52 mil/uL (4.20-5.00)
[2018-05-15 13:26] LABS: URINE BILIRUBIN NEGATIVE (Negative); URINE BLOOD 2+ (Negative); URINE CLARITY CLEAR; URINE COLOR YELLOW; URINE GLUCOSE-RANDOM* NEGATIVE (Negative); URINE KETONES NEGATIVE (Negative); URINE NITRITE-REFLEX NEGATIVE (Negative); URINE PROTEIN (DIPSTICK) NEGATIVE (Negative); URINE UROBILINOGEN 0.2 E.U./dl (0.2-1.0)
[2018-05-15 13:31] LABS: CREATININE 0.7 mg/dL (0.6-1.0); POTASSIUM 4.1 mmol/L (3.5-5.1)
[2018-05-15 13:34] LABS: URINE LEUKOCYTES-REFLEX 1+ (Negative)
[2018-05-15 13:35] LABS: BACTERIA-REFLEX 1-9 Few /HPF (None Seen); CASTS None Seen /LPF (None Seen); CRYSTALS None Seen /LPF (None Seen); SQUAMOUS None Seen /LPF (0-3); URINE WBC-REFLEX 6-15 Few /HPF (0-5)
[2018-05-15 15:54] VITALS: BP 110/59
[2018-05-15 17:32] VITALS: BP 123/80
[2018-05-15 17:55] VITALS: BP 107/51
[2018-05-15] MEDS ORDERED: DOXYCYCLINE 10100 MG PER TUBE (18:45)
[2018-05-15] MEDS ORDERED: VITAMINC500 PO (18:46)
[2018-05-15] MEDS ORDERED: CENTRUM SILVER1 EAC4 PO (18:46)
[2018-05-15] MEDS ORDERED: LIORESAL 10 MG10 MG PO (18:47)
[2018-05-15] MEDS ORDERED: BENADRYL25 MG PER TUBE (18:49)
[2018-05-15 20:00] VITALS: BP 120/72
[2018-05-16 05:30] VITALS: BP 145/79
[2018-05-16 07:42] LABS: HEMATOCRIT 24.7 % (37.0-47.0); MCH 30.4 pg (26.0-34.0); MCHC 33.6 g/dL (28.0-37.0); MCV 90.4 fL (80.0-100.0); RBC 2.73 mil/uL (4.20-5.00); RDW 13.5 % (10.5-14.5)
[2018-05-16 07:54] LABS: CREATININE 0.3 mg/dL (0.6-1.0)
[2018-05-16 07:56] LABS: CALCIUM 6.4 mg/dL (8.5-10.1); POTASSIUM 2.7 mmol/L (3.5-5.1)
[2018-05-16 08:04] VITALS: BP 136/81
[2018-05-16 08:10] LABS: HEMOGLOBIN 8.3 gm/dL (12.0-15.0)
[2018-05-16 11:10] LABS: HEMATOCRIT 38.3 % (37.0-47.0)
[2018-05-16 11:11] LABS: HEMOGLOBIN 12.6 gm/dL (12.0-15.0)
[2018-05-16 11:23] LABS: DIRECT BILIRUBIN 0.2 mg/dL (<0.1-0.3); TOTAL BILIRUBIN 0.7 mg/dL (<0.1-1.0); TOTAL PROTEIN 7.6 g/dL (6.4-8.2)
[2018-05-16 11:24] LABS: % SATURATION 19 % (20-39); IRON 50 ug/dL (50-170); TIBC 262 ug/dL (250-450)
[2018-05-16 12:09] LABS: CALCIUM 9.7 mg/dL (8.5-10.1); CREATININE 0.6 mg/dL (0.6-1.0)
[2018-05-16 13:49] LABS: MAGNESIUM 1.9 mg/dL (1.8-2.4); TROPONIN-I <0.06 ng/mL (<0.06)
[2018-05-16 20:44] VITALS: BP 150/96
[2018-05-17 03:51] LABS: BASOPHILS 0.7 % (0.0-2.0); EOSINOPHILS 1.4 % (0.0-3.0); HEMATOCRIT 37.3 % (37.0-47.0); HEMOGLOBIN 12.3 gm/dL (12.0-15.0); LYMPHOCYTES 22.1 % (24.0-44.0); MCH 29.2 pg (26.0-34.0); MCHC 32.9 g/dL (28.0-37.0); MCV 88.8 fL (80.0-100.0); MONOCYTES 8.3 % (1.0-8.0); PLATELET COUNT 458 thou/uL (150-400); POLYS 67.5 % (36.0-66.0); RDW 13.5 % (10.5-14.5); WBC 13.3 thou/uL (4.0-11.0)
[2018-05-17 03:57] LABS: CALCIUM 9.7 mg/dL (8.5-10.1); CREATININE 0.5 mg/dL (0.6-1.0); POTASSIUM 3.3 mmol/L (3.5-5.1)
[2018-05-17 05:39] VITALS: BP 117/76
[2018-05-17 22:50] VITALS: BP 122/63
[2018-05-18 04:30] LABS: ABSOLUTE NEUTROPHILS 7.9 thou/uL (1.4-8.2); BASOPHILS 0.5 % (0.0-2.0); EOSINOPHILS 1.8 % (0.0-3.0); HEMATOCRIT 34.3 % (37.0-47.0); HEMOGLOBIN 11.2 gm/dL (12.0-15.0); LYMPHOCYTES 20.7 % (24.0-44.0); MCH 29.2 pg (26.0-34.0); MCHC 32.6 g/dL (28.0-37.0); MCV 89.6 fL (80.0-100.0); PLATELET COUNT 403 thou/uL (150-400); RBC 3.83 mil/uL (4.20-5.00); RDW 13.5 % (10.5-14.5); WBC 11.7 thou/uL (4.0-11.0)
[2018-05-18 04:47] LABS: CALCIUM 8.7 mg/dL (8.5-10.1); CREATININE 0.5 mg/dL (0.6-1.0); POTASSIUM 3.8 mmol/L (3.5-5.1)
[2018-05-18 04:48] VITALS: BP 128/76
[2018-05-18 08:11] VITALS: BP 129/74
[2018-05-18 16:45] VITALS: BP 142/87
[2018-05-18 21:42] VITALS: BP 120/86
[2018-05-19 04:45] VITALS: BP 123/73
[2018-05-19 08:08] VITALS: BP 133/71
[2018-05-19 11:47] LABS: ABSOLUTE NEUTROPHILS 9.1 thou/uL (1.4-8.2); BASOPHILS 0.7 % (0.0-2.0); EOSINOPHILS 1.5 % (0.0-3.0); HEMATOCRIT 37.9 % (37.0-47.0); HEMOGLOBIN 12.4 gm/dL (12.0-15.0); LYMPHOCYTES 21.7 % (24.0-44.0); MCH 29.7 pg (26.0-34.0); MCHC 32.7 g/dL (28.0-37.0); MCV 90.8 fL (80.0-100.0); MONOCYTES 8.1 % (1.0-8.0); PLATELET COUNT 377 thou/uL (150-400); RBC 4.17 mil/uL (4.20-5.00); RDW 13.7 % (10.5-14.5); WBC 13.4 thou/uL (4.0-11.0)
[2018-05-19 11:54] LABS: CALCIUM 9.5 mg/dL (8.5-10.1); CREATININE 0.6 mg/dL (0.6-1.0)
[2018-05-19 16:25] VITALS: BP 136/74
[2018-05-19 19:38] VITALS: BP 136/82
[2018-05-20 05:05] VITALS: BP 120/73
[2018-05-20 08:38] VITALS: BP 145/65
[2018-05-20 15:55] VITALS: BP 115/62
[2018-05-20 19:40] VITALS: BP 127/88
[2018-05-21 04:47] VITALS: BP 123/86
[2018-05-21 07:44] VITALS: BP 138/76
[2018-05-21 17:02] VITALS: BP 145/79
[2018-05-21 20:45] VITALS: BP 144/82
[2018-05-22 04:30] VITALS: BP 97/55
[2018-05-22 07:17] VITALS: BP 128/71
[2018-05-22 15:35] VITALS: BP 138/81
[2018-05-22 19:45] VITALS: BP 129/79
[2018-05-23 02:43] VITALS: BP 129/79
[2018-05-23 05:10] VITALS: BP 131/66
[2018-05-23 07:05] VITALS: BP 126/64
[2018-05-23 07:35] LABS: HEMATOCRIT 30.1 % (37.0-47.0)
[2018-05-23 11:33] LABS: HEMATOCRIT 30.4 % (37.0-47.0); HEMOGLOBIN 10.1 gm/dL (12.0-15.0); MCH 29.7 pg (26.0-34.0); MCHC 33.1 g/dL (28.0-37.0); MCV 89.7 fL (80.0-100.0); RBC 3.39 mil/uL (4.20-5.00); RDW 13.7 % (10.5-14.5); WBC 16.1 thou/uL (4.0-11.0)
[2018-05-23 11:49] LABS: ALBUMIN 2.3 g/dL (3.4-5.0); CALCIUM 8.6 mg/dL (8.5-10.1); CREATININE 0.7 mg/dL (0.6-1.0); MAGNESIUM 1.7 mg/dL (1.8-2.4); POTASSIUM 3.8 mmol/L (3.5-5.1); TOTAL BILIRUBIN 0.2 mg/dL (<0.1-1.0); TOTAL PROTEIN 5.9 g/dL (6.4-8.2)
[2018-05-23 16:30] VITALS: BP 127/59
[2018-05-23 19:30] VITALS: BP 118/72
[2018-05-24 04:42] VITALS: BP 136/76
[2018-05-24 07:44] LABS: HEMATOCRIT 28.9 % (37.0-47.0); HEMOGLOBIN 9.7 gm/dL (12.0-15.0); MCH 30.6 pg (26.0-34.0); MCHC 33.5 g/dL (28.0-37.0); MCV 91.3 fL (80.0-100.0); RBC 3.16 mil/uL (4.20-5.00); RDW 14.2 % (10.5-14.5); WBC 14.5 thou/uL (4.0-11.0)
[2018-05-24 07:49] LABS: CALCIUM 8.4 mg/dL (8.5-10.1); CREATININE 0.5 mg/dL (0.6-1.0)
[2018-05-24 19:40] VITALS: BP 130/72
[2018-05-25 04:40] VITALS: BP 103/60
[2018-05-25 05:55] LABS: HEMATOCRIT 30.1 % (37.0-47.0); HEMOGLOBIN 9.9 gm/dL (12.0-15.0); MCH 30.3 pg (26.0-34.0); MCHC 32.9 g/dL (28.0-37.0); MCV 91.8 fL (80.0-100.0); RBC 3.27 mil/uL (4.20-5.00); RDW 14.7 % (10.5-14.5); WBC 11.9 thou/uL (4.0-11.0)
[2018-05-25 06:10] LABS: CALCIUM 8.4 mg/dL (8.5-10.1); CREATININE 0.5 mg/dL (0.6-1.0); MAGNESIUM 1.8 mg/dL (1.8-2.4); POTASSIUM 4.1 mmol/L (3.5-5.1)
[2018-05-25 17:31] VITALS: BP 125/86
[2018-05-25 20:02] VITALS: BP 125/73
[2018-05-26 04:54] VITALS: BP 114/68
[2018-05-26 06:15] LABS: HEMATOCRIT 29.3 % (37.0-47.0); HEMOGLOBIN 9.5 gm/dL (12.0-15.0); MCHC 32.5 g/dL (28.0-37.0); MCV 92.2 fL (80.0-100.0); RBC 3.17 mil/uL (4.20-5.00); RDW 14.6 % (10.5-14.5); WBC 12.4 thou/uL (4.0-11.0)
[2018-05-26 06:33] LABS: CALCIUM 9.1 mg/dL (8.5-10.1); CREATININE 0.5 mg/dL (0.6-1.0); MAGNESIUM 1.9 mg/dL (1.8-2.4); POTASSIUM 4.4 mmol/L (3.5-5.1)
[2018-05-26 07:32] VITALS: BP 122/77
[2018-05-26] MEDS ORDERED: BACLOFEN 10MG T10 MG PER TUBE (12:35)
[2018-05-26] MEDS ORDERED: OXYCODONE20 MG/1 ML PER TUBE (12:35)
== END 2018-05-26 16:25 | DRG 853 ==
LOC: ER 11:32 → EROBS 14:14 → 4E 14:14
PROVIDERS: Hospitalist; Internal Medicine; Orthopaedic Surgery; Physician Assistant
DX: A41.59 Other Gram-negative sepsis (principal); L89.614 Pressure ulcer of right heel, stage 4; E46 Unspecified protein-calorie malnutrition; M86.8X7 Other osteomyelitis, ankle and foot; T85.528A Displacement of other gastrointestinal prosthetic devices, implants and grafts, initial encounter; F25.9 Schizoaffective disorder, unspecified; F03.90 Unspecified dementia, unspecified severity, without behavioral disturbance, psychotic disturbance, mood disturbance, and anxiety; M24.574 Contracture, right foot; E78.00 Pure hypercholesterolemia, unspecified; B96.4 Proteus (mirabilis) (morganii) as the cause of diseases classified elsewhere; E83.42 Hypomagnesemia; Y83.8 Other surgical procedures as the cause of abnormal reaction of the patient, or of later complication, without mention of misadventure at the time of the procedure; Y92.89 Other specified places as the place of occurrence of the external cause; Z79.899 Other long term (current) drug therapy; Z68.23 Body mass index [BMI] 23.0-23.9, adult; Z88.5 Allergy status to narcotic agent; Z88.0 Allergy status to penicillin; Z88.2 Allergy status to sulfonamides; Z88.8 Allergy status to other drugs, medicaments and biological substances; Z88.1 Allergy status to other antibiotic agents; Z91.011 Allergy to milk products; Z23 Encounter for immunization
CPT/HCPCS: 10183; 27000; 50010; 50101; 50386; 51412; 53000; 56524; 56525; 56528; 57091; 57179; 62110; 62900; 70005